=== PATIENT | female | born 1990 | race Hispanic/Latino ===

== ENCOUNTER 2016-08-09 15:16 | Emergency (ER) | payer OTHER ==
[~2016-08-09] VITALS: Ht 154.9 cm; Wt 112.5 kg
[~2016-08-09 15:16] MED LIST: ALBUTEROL0.63 MG/3 INH/SOL; AMOXIL500 MG PO; CYCLOBENZAPRINE10 M1 PO; FLONASE120 SPRAY/ NASB; IBUPROFEN800 M1 PO; IBUPROFEN800 MG PO; MEDROL DOSEPAK1 PAC PO; NASONEX0.05 MG/Ac NAS; PERCOCET 325 MG1 TA2 PO; PREDNICOT20 MG PO; PRENATAL1 TA2 PO; PROVENTIL0.09 MG/A1 INH; PROVENTIL0.09 MG/Ac INH; ROBITUSSIN W/CO10 ML PO; TESSALON PERLE100 MG PO; ZITHROMAX Z PA250 MG PO
[2016-08-09 15:21] VITALS: BP 137/79
--- NOTE | 2016-08-09 15:47 | ED GENERAL ADULT ---
History of Present Illness General Chief Complaint: Wheezing/Asthma Stated Complaint: PER PT" I HAVE A COLD & ASTHMA" Source: patient Exam Limitations: no limitations Vital Signs & Intake/Output Vital Signs & Intake/Output Vital Signs Date Time Temp Pulse Resp B/P Pulse O2 O2 Flow FiO2 Ox Delivery Rate 08/09 1521 98.1 78 18 137/79 99 Room Air Allergies Coded Allergies: NO KNOWN ALLERGIES (01/29/15) Reconcile Medications Albuterol Sulfate (Proventil Hfa) 90 MCG HFA.AER.AD 2 PUF INH PRN RESPIRATORY (Reported) Albuterol Sulfate (Proventil Hfa) 90 MCG HFA.AER.AD 2 PUF INH Q4 ASTMA Albuterol Sulfate 2.5 MG/0.5 ML VIAL.NEB 1 Vial INH/JAYCEE Q4 PRN ASTHMA Azithromycin (Zithromax Tri-Heriberto) 500 MG TABLET 1 TAB PO DAILY BRONCHITIS Prednisone 20 MG TABLET 2 TAB PO DAILY ASTHMA Triage Note: 26 Y/O FEMALE C/O "I HAVE A COLD BUT I HAVE ASTHMA SO I GET ASTHMATIC BRONCHITIS". STATES SHE HAS BEEN USING HER INHALER WITH NO RELIEF. HAS A NEBULIZER MACHINE AT HOME BUT NO MEDICATION REFILLS. STATES COUGH IN NONPRODUCTIVE. Triage Nurses Notes Reviewed? yes Onset: Abrupt Duration: day(s): Timing: recent history : No Patient currently breastfeeds: No HPI: 08/09/16 4 PM 26-year-old female presents to the emergency department for cough and difficulty breathing. According to the patient she was in her usual state of health until the past 3 days when she developed cough and difficulty breathing. She has a past medical history of asthma but ran out of the solution for her machine. No fever, she does have sputum production mostly white; scant yellow. The onset of the symptoms were abrupt, the duration has been 3 days, the severity is significant; as her symptoms required her to come to the emergency department for care. She has a past medical history of tubal ligation. No other complaints Lungs are clear and she is in no acute distress Past History Travel History Traveled to [place] past 21 day No Medical History Any Pertinent Medical History? see below for history Neurological: NONE EENT: allergies, sinusitis, most recently on amoxicillin for sinusitis Cardiovascular: NONE Respiratory: asthma Gastrointestinal: NONE Hepatic: NONE Renal: NONE Musculoskeletal: NONE Psychiatric: NONE Endocrine: obesity, current BMI 55 Blood Disorders: NONE Cancer(s): NONE History of MRSA: No History of VRE: No History of CDIFF: No Surgical History Surgical History: non-contributory Psychosocial History Services at Home None What is your primary language Cymraes Tobacco Use: Never used Family History Family History, If Any: Relation not specified for: *No pertinent family history Hx Contributory? No Review of Systems Review of Systems Constitutional: Denies: fever. EENTM: Reports: no symptoms. Respiratory: Reports: cough, short of breath. Cardiovascular: Denies: chest pain. GI: Denies: abdominal pain. Genitourinary: Reports: no symptoms. Musculoskeletal: Reports: no symptoms. Skin: Reports: no symptoms. Neurological/Psychological: Reports: no symptoms. Hematologic/Endocrine: Reports: no symptoms. Immunologic/Allergic: Reports: no symptoms. Physical Exam Physical Exam General Appearance: alert, awake, anxious, mild distress Head: atraumatic, normal appearance Eyes: Bilateral: normal appearance, PERRL, EOMI. Ears, Nose, Throat: normal pharynx, normal ENT inspection Neck: normal inspection, supple Respiratory: normal breath sounds, chest non-tender, no respiratory distress Cardiovascular: regular rate/rhythm Peripheral Pulses: 4+ radial (R), 4+ radial (L) Gastrointestinal: soft, non-tender Back: normal range of motion Extremities: normal inspection, normal range of motion, no edema, NO CALF TENDERNESS Neurologic/Psych: no motor/sensory deficits, awake, alert, oriented x 3 Skin: intact, normal color, warm/dry Core Measures ACS in differential dx? No CVA/TIA Diagnosis: No Severe Sepsis Present: No Septic Shock Present: No Progress Differential Diagnoses I considered the following diagnoses in my evaluation of the patient: [Asthma, pneumonia, bronchitis, influenza] Plan of Care: Take medications as directed. Follow-up with her doctor this week. Initial ED EKG: none Departure Departure Disposition: HOME OR SELF CARE Condition: Stable Clinical Impression Primary Impression: Asthma Secondary Impressions: Bronchitis Referrals: BC BURK MD (PCP/Family) Departure Forms: Customer Survey General Discharge Information Prescriptions: Current Visit Scripts Albuterol Sulfate (Proventil Hfa) 2 PUF INH Q4 #1 INHAL Albuterol Sulfate 1 Vial INH/JAYCEE Q4 PRN ASTHMA #60 Vial Prednisone 2 TAB PO DAILY #10 TAB Azithromycin (Zithromax Tri-Heriberto) 1 TAB PO DAILY #3 TAB Critical Care Note Critical Care Note Critical Care Time: non-applicable
[2016-08-09] MEDS ORDERED: PROVENTIL HFA6.7 GM INH ×2 (16:10→16:20)
[2016-08-09] MEDS ORDERED: PREDNISONE20 M1 PO (16:20)
[2016-08-09] MEDS ORDERED: ZITHROMAX TRI-500 M1 PO (16:20)
[2016-08-09] MEDS ORDERED: ALBUTEROL2.5 MG/0.5 INH/SOL (16:20)
== END 2016-08-09 16:26 ==
LOC: ERH 15:16
DX: J45.901 Unspecified asthma with (acute) exacerbation (principal)

== ENCOUNTER 2016-10-07 15:16 | Emergency (ER) | payer OTHER ==
[~2016-10-07] VITALS: Ht 154.9 cm; Wt 113.4 kg
[~2016-10-07 15:16] MED LIST changes: +ALBUTEROL2.5 MG/0.5 INH/SOL; +PREDNISONE20 M1 PO; +PROVENTIL HFA6.7 GM INH; +ZITHROMAX TRI-500 M1 PO
[2016-10-07 15:18] VITALS: BP 121/75
--- NOTE | 2016-10-07 16:00 | ED INFLUENZA/URI COMPLAINT ---
History of Present Illness General Chief Complaint: Upper Respiratory Sx/Fever Stated Complaint: ASTHMA; "COLD" Source: patient Exam Limitations: no limitations Vital Signs & Intake/Output Vital Signs & Intake/Output Vital Signs Date Time Temp Pulse Resp B/P Pulse O2 O2 Flow FiO2 Ox Delivery Rate 10/07 1602 Room Air 10/07 1518 98.9 76 18 121/75 100 Room Air Allergies Coded Allergies: NO KNOWN ALLERGIES (01/29/15) Reconcile Medications Albuterol Sulfate (Proventil Hfa) 90 MCG HFA.AER.AD 2 PUF INH PRN RESPIRATORY (Reported) Albuterol Sulfate (Proventil Hfa) 90 MCG HFA.AER.AD 2 PUF INH Q4 ASTMA Albuterol Sulfate 2.5 MG/0.5 ML VIAL.NEB 1 Vial INH/JAYCEE Q4 PRN ASTHMA Albuterol Sulfate (Proventil Hfa) 90 MCG HFA.AER.AD 2 PUF INH Q4 PRN SOB Azithromycin (Zithromax Tri-Heriberto) 500 MG TABLET 1 TAB PO DAILY BRONCHITIS Benzonatate (Tessalon Perle) 100 MG CAPSULE 1 CAP PO TID PRN COUGH Mometasone Furoate (Nasonex) 50 MCG SPRAY.PUMP 2 SPRAY NASB DAILY PRN CONGESTION Prednisone 20 MG TABLET 2 TAB PO DAILY ASTHMA Triage Note: PT TO ED FOR COLD LIKE SYMPTOMS X 1 DAY AND ALSO NEEDS A REFILL FOR HER PROVENTIL INHALER. Triage Nurses Notes Reviewed? yes Onset: Gradual Duration: day(s): (1) Timing: remote history Severity: moderate Severity Numbers: 6 Prior Episodes/Possible Cause: occassional episodes No Modifying Factors: none Associated Symptoms: cough : No Patient currently breastfeeds: No HPI: Patient is a 26-year-old female presenting to the emergency department to complaint of congestion started today. Also prescribed cough. No fevers or chills. She also reports that she ran of her Proventil inhaler. Denies any nausea vomiting fevers or chills chest pain or shortness of breath. No sputum production. Denies taking anything to help with symptoms. No sick contacts or travel. (PETER DOTSON,GLADYS) Past History Travel History Traveled to [place] past 21 day No Medical History Any Pertinent Medical History? see below for history Neurological: NONE EENT: allergies, sinusitis, most recently on amoxicillin for sinusitis Cardiovascular: NONE Respiratory: asthma Gastrointestinal: NONE Hepatic: NONE Renal: NONE Musculoskeletal: NONE Psychiatric: NONE Endocrine: obesity, current BMI 55 Blood Disorders: NONE Cancer(s): NONE History of MRSA: No History of VRE: No History of CDIFF: No Surgical History Surgical History: non-contributory Psychosocial History Services at Home None What is your primary language Kazakh Tobacco Use: Never used ETOH Use: denies use Illicit Drug Use: denies illicit drug use Family History Family History, If Any: Relation not specified for: *No pertinent family history Hx Contributory? No (GLADYS NEWTON) Review of Systems Review of Systems Constitutional: Reports: see HPI, fever. Comments Review of systems: See HPI, All other systems negative. Constitutional, no chills fever or weight loss HEENT: No visual changes no sore throat Cardiovascular: No chest pain ,palpitation , orthopnea or ankle swelling Skin, no jaundice no rashes Respiratory: No dyspnea sputum or hemoptysis GI: No nausea no vomiting : No dysuria No hematuria Muscle skeletal: no back pain, no neck pain, Neurologic: No numbness no confusion Psych: No stress anxiety or depression,. Heme/endocrine: No bruising no bleeding no polyuria or polydipsia Immunology: No splenectomy or history of AIDS (GLADYS NEWTON) Physical Exam Physical Exam General Appearance: well developed/nourished, no apparent distress, alert, awake , comfortable Ears, Nose, Throat: nasal congestion, nasal drainage Comments: Well-developed well-nourished person in no acute distress HEENT: Normal EENT exam, extraocular motion intact, no nystagmus. Pupils equally round and reactive to light and accommodation. Nose is atraumatic. External auditory canal and Tympanic membranes clear. Pharynx normal. No swelling or edema. CLEAR NASAL DISCHARGE BILATERALLY. MILD MAXILLARY SINUS TENDERNESS BILATERALLY. Neck: Supple, no lymphadenopathy, normal range of motion without pain or tenderness Back: no CVA tenderness. Cardiovascular: Regular rate and rhythms no murmurs rubs or gallops, normal JVP Respiratory: Chest nontender. No respiratory distress.breath sounds clear to auscultation bilaterally Normal bowel sounds. No ascites Neuro: Alert oriented x3 Skin: No appreciable rash on exposed skin, skin is warm and dry. Psych: Mood and affect is normal, memory and judgment is normal. Core Measures Severe Sepsis Present: No Septic Shock Present: No (GLADYS NEWTON) Progress Differential Diagnosis: influenza, pneumonia, pharyngitis, sinusitis, UPPER RESPIRATORY INFECTION, SINUSITIS Plan of Care: Patient is well-appearing in no teaches. Likely upper respiratory infection. Patient will be treated symptomatically. Initial ED EKG: none (GLADYS NEWTON) Departure Departure Time of Disposition: 1600 Disposition: HOME OR SELF CARE Condition: Stable Clinical Impression Primary Impression: Upper respiratory infection Qualifiers: URI type: unspecified viral URI Qualified Codes: J06.9 - Acute upper respiratory infection, unspecified; B97.89 - Other viral agents as the cause of diseases classified elsewhere Ruled Out Impressions: Upper respiratory disease Referrals: BC BURK MD (PCP/Family) Additional Instructions: Call your primary care physician call to make appointment. Take Nasonex as prescribed, increase fluids. Take Tessalon Perles as prescribed for cough. Take Tylenol or Motrin [id number] to help with any aches or pains. Departure Forms: Customer Survey General Discharge Information Prescriptions: Current Visit Scripts Mometasone Furoate (Nasonex) 2 SPRAY NASB DAILY PRN CONGESTION #1 INHAL Benzonatate (Tessalon Perle) 1 CAP PO TID PRN COUGH #30 CAP Albuterol Sulfate (Proventil Hfa) 2 PUF INH Q4 PRN SOB #1 INHAL (GLADYS NEWTON) PA/HOSPICE AIDE Co-Sign Statement Statement: ED Attending supervision documentation- [] I saw and evaluated the patient. I have also reviewed all the pertinent lab results and diagnostic results. I agree with the findings and the plan of care as documented in the PA's/HOSPICE AIDE's documentation. [X] I have reviewed the ED Record and agree with the PA's/HOSPICE AIDE's documentation. [] Additions or exceptions (if any) to the PAs/HOSPICE AIDE's note and plan are summarized below: [] (MITZY MURCIA,PEPITO Thapa)
[2016-10-07] MEDS ORDERED: TESSALON PERLE100 M1 PO (16:02)
[2016-10-07] MEDS ORDERED: NASONEX17 GM NASB (16:02)
[2016-10-07] MEDS ORDERED: PROVENTIL HFA6.7 GM INH (16:08)
== END 2016-10-07 16:14 ==
LOC: ERH 15:16
DX: J06.9 Acute upper respiratory infection, unspecified (principal)

== ENCOUNTER 2016-10-31 16:59 | Emergency (ER) | payer OTHER ==
[~2016-10-31] VITALS: Ht 154.9 cm; Wt 113.4 kg
[~2016-10-31 16:59] MED LIST changes: +NASONEX17 GM NASB; +TESSALON PERLE100 M1 PO
[2016-10-31 17:07] VITALS: BP 110/73
--- NOTE | 2016-10-31 18:01 | ED UPPER/LOWER EXTREMITY COMPL ---
History of Present Illness General Chief Complaint: Female Urogenital Problems Stated Complaint: PT IS HAVING PAIN IN THE GROIN AREA Source: patient, old records Exam Limitations: no limitations Vital Signs & Intake/Output Vital Signs & Intake/Output Vital Signs Date Time Temp Pulse Resp B/P B/P Pulse O2 O2 Flow FiO2 Mean Ox Delivery Rate 10/31 1707 97.4 74 18 110/73 99 Room Air Allergies Coded Allergies: NO KNOWN ALLERGIES (01/29/15) Reconcile Medications Albuterol Sulfate (Proventil Hfa) 90 MCG HFA.AER.AD 2 PUF INH PRN RESPIRATORY (Reported) Albuterol Sulfate (Proventil Hfa) 90 MCG HFA.AER.AD 2 PUF INH Q4 ASTMA Albuterol Sulfate 2.5 MG/0.5 ML VIAL.NEB 1 Vial INH/JAYCEE Q4 PRN ASTHMA Albuterol Sulfate (Proventil Hfa) 90 MCG HFA.AER.AD 2 PUF INH Q4 PRN SOB Azithromycin (Zithromax Tri-Heriberto) 500 MG TABLET 1 TAB PO DAILY BRONCHITIS Benzonatate (Tessalon Perle) 100 MG CAPSULE 1 CAP PO TID PRN COUGH Mometasone Furoate (Nasonex) 50 MCG SPRAY.PUMP 2 SPRAY NASB DAILY PRN CONGESTION Oxycodone HCl/Acetaminophen (Percocet 5-325 MG Tablet) 5 MG-325 MG TABLET 1 TAB PO BID PAIN Prednisone 20 MG TABLET 2 TAB PO DAILY ASTHMA Triage Note: PT STATES THAT SHE WOKE THIS AM WITH R UPPER THIGH PAIN , PAIN INCREASES WITH ANY MOVEMENT. PT IS NOT SURE IF ITS FROM WORKING OUT. LAST WORKED OUT 2 DAYS AGO Triage Nurses Notes Reviewed? yes Onset: Abrupt Duration: day(s): (1), constant Timing: recent history Severity: moderate Severity Numbers: 8 Pain/Injury Location: Right: Leg, Thigh. Method of Injury: unknown Modifying Factors: Improves With: rest. Worsens With: movement. Associated Symptoms: none : No Patient currently breastfeeds: No HPI: 26-year-old female presents to the ER for evaluation playing of right groin pain radiating to her right thigh since this morning. She denies known injury or trauma however states that she has been working out recently and believes she may pulled her groin. She denies abdominal pain back pain urinary symptoms no urinary bowel incontinence no numbness or tingling. Pain is worse with weightbearing she took ibuprofen and a muscle relaxer at home without improvement she denies swelling to her leg pain and no recent immobility (MARSHA ZARATE) Past History Travel History Traveled to [place] past 21 day No Medical History Any Pertinent Medical History? see below for history Neurological: NONE EENT: allergies, sinusitis, most recently on amoxicillin for sinusitis Cardiovascular: NONE Respiratory: asthma Gastrointestinal: NONE Hepatic: NONE Renal: NONE Musculoskeletal: NONE Psychiatric: NONE Endocrine: obesity, current BMI 55 Blood Disorders: NONE Cancer(s): NONE History of MRSA: No History of VRE: No History of CDIFF: No Surgical History Surgical History: non-contributory Psychosocial History Services at Home None What is your primary language Belarusian Tobacco Use: Never used ETOH Use: denies use Illicit Drug Use: denies illicit drug use Family History Family History, If Any: Relation not specified for: *No pertinent family history Hx Contributory? No (MARSHA ZARATE) Review of Systems Review of Systems Constitutional: Reports: see HPI. All Other Systems: Reviewed and Negative Comments Review of systems: See HPI, All other systems negative. Constitutional, no chills no fever, no malaise HEENT: No visual changes no sore throat no congestion, Cardiovascular: No chest pain , no palpitation Skin: no rashes, no change in skin Respiratory: No dyspnea no cough no sputum GI: No nausea no vomiting, no diarrhea, : No dysuria Muscle skeletal: No joint pain, no joint swelling, no back pain, no neck pain, Neurologic: no headache Psych: No stress Heme/endocrine: No bruising no bleeding Immunology: No lymphadenopathy (MARSHA ZARATE) Physical Exam Physical Exam General Appearance: well developed/nourished, no apparent distress, alert, awake Comments: Well-developed well-nourished patient in no apparent distress. HEENT: Atraumatic, extraocular motion intact Neck: Supple, FROM Back: FROM Cardiovascular: Regular rate and rhythms no murmurs rubs or gallops, Respiratory: Chest nontender.There were no bony deformities, no asymmetry. No respiratory distress. Patient speaking in full complete sentences. Breath sounds clear to auscultation bilaterally: NO W/R/R Abdomen: Soft Nontender morbidly obese Upper Extremities: full range of motion Hip/Pelvis: Atraumatic/Stable. FROM. No pain with pelvic compression Knee: Atraumatic/stable. FROM. No joint swelling, no effusion. No laxity. Negative asa/anterior drawer test. No pain with ROM Leg: Atraumatic. Nontender. No calf tenderness no ecchymosis or No edema, 5 out of 5 strength in the lower extremity, normal dorsiflexion of great toe bilaterally, gross sensation is intact, patellar tendon reflex 2+ bilaterally. Ankle/Foot: Atraumatic/stable. Skin intact. FROM. No swelling, no effusion. No laxity on exam Pulses: Normal/equal DP/PT pulses bilaterally. Brisk cap refill Neuro: awake, alert, and oriented to person, place and time. There were no obvious focal neurologic abnormalities. Skin: Warm & dry;No appreciable rash on exposed skin Psych: Mood affect normal, normal memory normal judgment. (MARSHA ZARATE) Progress Differential Diagnosis: cellulitis, compartment syndrome, contusion, dislocation , DVT, fracture, sprain, tendon injury, muscle strain Plan of Care: Orders Procedure Date/time Status Durable Medical Equipment 10/31 1808 Active sx consistent with muscle injury, advised heating pads, c/w ibuprofen, muscle relaxer and percocet. advised clsoe f/u with pmd pt provided with crutches. I had an extensive conversation regarding need for close follow up with their primary care physician this week as well as return precautions. I answered all of their questions, they feel comfortable with the plan and follow-up care. I discussed the medications that they will receive with the patient. I gave them signs and symptoms that could indicate an adverse reaction. I have advised them to limit their activities until they can see how they respond to the medication. (MARSHA ZARATE) Departure Departure Time of Disposition: 1808 Disposition: HOME OR SELF CARE Condition: Stable Clinical Impression Primary Impression: Muscle strain Referrals: BC BURK MD (PCP/Family) Additional Instructions: REST, HEATING PADS, CRTUCHES WHEN AMBULATORY PERCOCET FOR PAIN- THIS IS A NARCOTIC HIGHLY ADDICTIVE NO DRIVING OR DRINKING ALCOHOL WHILE TAKING. THIS WAS SENT TO [facility] Departure Forms: Customer Survey General Discharge Information Prescriptions: Current Visit Scripts Oxycodone HCl/Acetaminophen (Percocet 5-325 MG Tablet) 1 TAB PO BID #8 TAB (MARSHA ZARATE) PA/CELLOPHANE PRESS OPERATOR Co-Sign Statement Statement: ED Attending supervision documentation- [] I saw and evaluated the patient. I have also reviewed all the pertinent lab results and diagnostic results. I agree with the findings and the plan of care as documented in the PA's/CELLOPHANE PRESS OPERATOR's documentation. [X] I have reviewed the ED Record and agree with the PA's/CELLOPHANE PRESS OPERATOR's documentation. [] Additions or exceptions (if any) to the PAs/CELLOPHANE PRESS OPERATOR's note and plan are summarized below: [] (MITZY MURCIA,PEPITO Thapa)
[2016-10-31] MEDS ORDERED: PERCOCET 5-3251 EACH PO (18:11)
== END 2016-10-31 18:15 ==
LOC: ERH 16:59
DX: S39.011A Strain of muscle, fascia and tendon of abdomen, initial encounter (principal); X58.XXXA Exposure to other specified factors, initial encounter; Y92.9 Unspecified place or not applicable; Y93.9 Activity, unspecified